=== PATIENT | male | born 1975 | race African-American/Black ===

== ENCOUNTER 2022-12-24 14:21 | Emergency (ER) | payer OTHER ==
[2022-12-24 14:28] VITALS: BP 144/84; PULSE 80; RESP 18; TEMP 97; BMI 36.8
[2022-12-24] MEDS ORDERED: LIDOCAINE 5% TOPICAL PATCH TP ONE (15:13)
[2022-12-24] MEDS ORDERED: diazePAM 5 MG TABLET PO ONE (15:14)
[2022-12-24] MEDS ORDERED: diazePAM 5 MG TABLET ONE (16:25)
[2022-12-24] MEDS ORDERED: LIDOCAINE 5% TOPICAL PATCH ONE (16:25)
[2022-12-24] MEDS ORDERED: KETOROLAC TROMETHAMINE 15 MG/ML VIAL ONE (16:33)
[2022-12-24] MEDS ORDERED: KETOROLAC TROMETHAMINE 15 MG/ML VIAL IM ONE (16:35)
[2022-12-24] MEDS ORDERED: LIDOCAINE PATCH REMOVAL MC SCH (22:00)
== END 2022-12-24 17:16 | disposition home or self-care (01) ==
LOC: JER 14:21
PROC: 3E0233Z Introduction of Anti-inflammatory into Muscle, Percutaneous Approach (ICD-10-PCS; principal; 2022-12-24)
DX: M54.42 Lumbago with sciatica, left side (principal); G89.29 Other chronic pain
CPT/HCPCS: 99284-25